=== PATIENT | male | born 1955 | race Caucasian/White ===

== ENCOUNTER 2017-12-26 16:30 | Emergency (ER) | payer MEDICAID ==
[2017-12-26 16:53] LABS: % BASOPHILS 1.6 % (0.0-2.0); % EOSINOPHILS 1.1 % (0.0-5.0); % LYMPHOCYTES 36.6 % (20.0-50.0); % MONOCYTES 11.2 % (2.0-10.0); % NEUTROPHILS 49.5 % (40.0-80.0); BASOPHILE ABSOLUTE 0.1 Th/cumm (0-0.2); EOSINOPHILE ABSOLUTE 0.1 Th/cmm (0.1-0.4); HEMATOCRIT 39.5 % (41.0-60); HEMOGLOBIN 13.8 gm/dL (12-16); LYMPHOCYTE ABSOLUTE 1.7 Th/cmm (1.5-3.0); MEAN CELL VOLUME 97.8 fl (80-99); MEAN CORPUSCULAR HGB CONC 34.8 pg (28.0-36.0); MEAN PLATELET VOLUME 6.7 fl; MONOCYTE ABSOLUTE 0.5 Th/cmm (0.3-1.0); NEUTROPHILE ABSOLUTE 2.2 Th/cmm (1.8-8.0); PLATELET COUNT 169 Th/cmm (150-400); RED BLOOD COUNT 4.04 Mil/cmm (4.30-5.70); RED CELL DISTRIBUTION WIDTH 13.4 % (11.5-20.0); WHITE BLOOD COUNT 4.6 Th/cmm (4.8-10.8)
[2017-12-26 17:08] LABS: ALB/GLOB RATIO 2.1 (1.0-1.8); ALBUMIN 4.5 gm/dL (4.2-5.5); ALKALINE PHOSPHATASE 56 U/L (34-104); BILIRUBIN,TOTAL 0.5 mg/dL (0.3-1.0); BUN - UREA NITROGEN 8 mg/dL (7-25); CALCIUM SERUM 8.8 mg/dL (8.6-10.3); CARBON DIOXIDE 23.8 mEq/L (21.0-31.0); CHLORIDE 98 mEq/L (98-107); CREATININE - SERUM 0.5 mg/dL (0.7-1.3); GFR AFRICAN-AMERICAN > 60.0 ml/min (>90); GFR NON AFRICAN-AMERICAN > 60.0 ml/min; GLUCOSE 115 mg/dL (70-105); POTASSIUM SERUM 3.8 mEq/L (3.5-5.1); SGOT 112 U/L (13-39); SGPT/ALT 71 U/L (7-52); SODIUM SERUM 135 mEq/L (136-145); TOTAL PROTEIN,SERUM 6.7 gm/dL (6.0-8.3)
[2017-12-26] MEDS ORDERED: Naloxone 0.4 mg/mL 1mL Vial IM STA (17:34)
[2017-12-26] MEDS ORDERED: Naloxone 0.4 mg/mL 1mL Vial ONE (18:00)
[2017-12-26 18:31] LABS: AMPHETAMINE URINE NEGATIVE (NEGATIVE); BARBITURATES URINE NEGATIVE (NEGATIVE); BENZODIAZEPINES QUAL URINE NEGATIVE (NEGATIVE); CANNABINOID THC NEGATIVE (NEGATIVE); COCAINE METABOLITE QUAL URINE NEGATIVE (NEGATIVE); METHADONE URINE NEGATIVE (NEGATIVE); METHAMPHETAMINES QUAL URINE NEGATIVE (NEGATIVE); OPIATES (MORPHINE) QUAL. URINE NEGATIVE (NEGATIVE); PHENCYCLIDINE (PCP) URINE NEGATIVE (NEGATIVE); TRICYCLICS (TCA) QUAL. URINE NEGATIVE (NEGATIVE)
--- NOTE | 2017-12-26 19:02 | ED Physician Chart ---
ED Chief Complaint/HPI - Patient Information Date Seen:: 12/26/17 Time Seen:: 17:10 Chief Complaint:: bilateral knee pain Allergies:: Allergies Allergy/AdvReac Type Severity Reaction Status Date / Time No Known Allergies Allergy Verified 12/26/17 17:05 Vitals:: Vital Signs - 8 hr 12/26/17 12/26/17 17:02 18:03 Temp 98.2 F 98.7 F HR 72 65 RR 16 18 BP 122/94 O2 Sat % 93 95 Historian:: Patient Review:: Nurse's Note Reviewed Family Medical History - Family Member Mother History Unknown: Yes ED Labs/Radiology/EKG Results - Lab Results Results: Laboratory Tests 12/26/17 12/26/17 12/26/17 16:48 16:48 16:48 WBC 4.6 L RBC 4.04 L Hgb 13.8 Hct 39.5 L MCV 97.8 MCH 34.0 H MCHC Differential 34.8 RDW 13.4 Plt Count 169 MPV 6.7 Neutrophils % 49.5 Lymphocytes % 36.6 Monocytes % 11.2 H Eosinophils % 1.1 Basophils % 1.6 Sodium 135 L Potassium 3.8 Chloride 98 Carbon Dioxide 23.8 Anion Gap 17.0 H BUN 8 Creatinine 0.5 L Est GFR ( Amer) > 60.0 Est GFR (Non-Af Amer) > 60.0 BUN/Creatinine Ratio 16.0 Glucose 115 H Calcium 8.8 Total Bilirubin 0.5 AST 112 H ALT 71 H Alkaline Phosphatase 56 Troponin I < 0.01 L Total Protein 6.7 Albumin 4.5 Globulin 2.2 Albumin/Globulin Ratio 2.1 H Urine Opiates Screen Urine Methadone Screen Ur Barbiturates Screen Ur Tricyclics Screen Ur Phencyclidine Scrn Amphetamines Screen U Methamphetamines Scrn U Benzodiazepines Scrn U Cocaine Metab Screen U Cannabinoids Screen 12/26/17 18:10 WBC RBC Hgb Hct MCV MCH MCHC Differential RDW Plt Count MPV Neutrophils % Lymphocytes % Monocytes % Eosinophils % Basophils % Sodium Potassium Chloride Carbon Dioxide Anion Gap BUN Creatinine Est GFR ( Amer) Est GFR (Non-Af Amer) BUN/Creatinine Ratio Glucose Calcium Total Bilirubin AST ALT Alkaline Phosphatase Troponin I Total Protein Albumin Globulin Albumin/Globulin Ratio Urine Opiates Screen NEGATIVE Urine Methadone Screen NEGATIVE Ur Barbiturates Screen NEGATIVE Ur Tricyclics Screen NEGATIVE Ur Phencyclidine Scrn NEGATIVE Amphetamines Screen NEGATIVE U Methamphetamines Scrn NEGATIVE U Benzodiazepines Scrn NEGATIVE U Cocaine Metab Screen NEGATIVE U Cannabinoids Screen NEGATIVE ED Septic Shock - . Is Septic Shock (SBP<90, OR Lactate>4 mmol\L) present?: No - <6hrs of presentation: Vital Signs: Vital Signs - 8 hr 12/26/17 12/26/17 17:02 18:03 Temp 98.2 F 98.7 F HR 72 65 RR 16 18 BP 122/94 O2 Sat % 93 95
--- NOTE | 2017-12-27 09:23 | Diagnostic Imaging Report ---
Left knee 3 views Indication: pain Comparison: Right knee X-ray the same day Findings: Moderate degenerative changes are noted with mild narrowing of the medial knee compartment. Small calcification is seen along the medial posterior knee region, nonspecific. A fabella is noted. No evidence of an acute fracture. No joint effusion. There is probable osteopenia. Impression: No evidence of an acute fracture. Moderate degenerative changes. Probable osteopenia. In the setting of trauma, if clinical symptoms persist and there is continued concern for an occult fracture, follow up exams in 5-7 days is suggested.
--- NOTE | 2017-12-27 09:23 | Diagnostic Imaging Report ---
Right knee 3 views Indication: pain Comparison: Left knee x-rays the same day Findings: Moderate degenerative changes are noted with mild narrowing of the medial knee compartment. There is also at least moderate narrowing of the patellofemoral knee compartment. Calcifications are seen posteriorly which appear to represent vascular calcifications. No evidence of an acute fracture or joint effusion. There is probable osteopenia. Impression: No evidence of an acute fracture. Moderate degenerative changes Probable osteopenia. Atherosclerotic vascular disease. In the setting of trauma, if clinical symptoms persist and there is continued concern for an occult fracture, follow up exams in 5-7 days is suggested.
== END 2017-12-26 18:30 | disposition left against medical advice (07) ==
LOC: ER 16:30
DX: M23.42 Loose body in knee, left knee (principal); M23.41 Loose body in knee, right knee
CPT/HCPCS: 36415-UA; 73562-TC-LT; 73562-TC-RT; 80053-TC; 80307; 84484-TC; 85025-TC; X6614

== ENCOUNTER 2018-01-28 19:56 | Emergency (ER) | payer MEDICAID ==
[2018-01-28] MEDS ORDERED: Silver Nitrate 1 Swab TP ONE (20:20)
[2018-01-28] MEDS ORDERED: Triple Antibiotic 0.94 gm Pkt TP ONE (20:25)
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
[2018-01-28] MEDS ORDERED: Triple Antibiotic 0.94 gm Pkt TP STA (21:54)
[2018-01-28] MEDS ORDERED: Silver Nitrate 1 Swab TP STA (21:54)
== END 2018-01-28 20:55 | disposition left against medical advice (07) ==
LOC: ER 19:56
DX: S01.01XA Laceration without foreign body of scalp, initial encounter (principal); S61.511A Laceration without foreign body of right wrist, initial encounter; S61.411A Laceration without foreign body of right hand, initial encounter; S09.90XA Unspecified injury of head, initial encounter; F17.210 Nicotine dependence, cigarettes, uncomplicated; F10.10 Alcohol abuse, uncomplicated; W51.XXXA Accidental striking against or bumped into by another person, initial encounter; Y93.89 Activity, other specified; Y92.512 Supermarket, store or market as the place of occurrence of the external cause; Y99.8 Other external cause status
CPT/HCPCS: Z7502